=== PATIENT | male | born 1950 | race Caucasian/White ===

== ENCOUNTER 2022-07-24 12:34 | Outpatient (CLI) | payer MEDICARE, OTHER ==
[~2022-07-24 12:34] MED LIST: Iopamidol 370 76% 100 ML VIAL ONE
== END 2022-07-24 12:35 | disposition home or self-care (01) ==
LOC: CSHCT 12:34
PROVIDERS: ATTEND Thoracic Surgery (Cardiothoracic Vascular Surgery)
DX: I70.212 Atherosclerosis of native arteries of extremities with intermittent claudication, left leg (principal); Z95.828 Presence of other vascular implants and grafts
CPT/HCPCS: 75635; 82565